=== PATIENT | female | born 1970 | race Caucasian/White ===

== ENCOUNTER 2017-12-17 13:36 | Observation (INO) | payer SELFPAY ==
[2017-12-17] VITALS (10 sets, daily range): BP systolic 112–141; BP diastolic 67–82; PULSE 63–100; RESP 16–20; TEMP 36.7–37.1; O2SAT 96–100; BMI 21.8; BMI 21.6
--- NOTE | 2017-12-17 13:51 | ED.RN ---
Patient reports numbness to left lower lip. denies N/T anywhere else.
--- NOTE | 2017-12-17 14:09 | CT_ITS ---
STUDY: CT BRAIN WITHOUT CONTRAST REASON FOR EXAM: Female, 47 years old. Numbness of the left mandibular region. RADIATION DOSAGE (If Supplied By Facility): CTDIvol = ( 44.99 ) mGy, DLP = ( 796.11 ) mGycm TECHNIQUE: Transaxial CT imaging of the brain was performed without administration of intravenous contrast material. Individualized dose optimization techniques were used for this CT. COMPARISON: Comparison is made with prior examination dated March 25, 2008. FINDINGS: Normal soft tissue structures. Normal calvarium. Normal size ventricles and extra-axial spaces for the patient's age. Stable focal area of encephalomalacia in the lateral aspect of the left frontal lobe suggestive of prior ischemic insult or changes secondary to prior trauma. Normal basal ganglia and thalami. Normal brainstem. Normal cerebellum. There is no intracranial hemorrhage. There are no findings of an acute ischemic infarction. Normal visualized paranasal sinuses. CT/Brain/Head without Contrast IMPRESSION: Stable focal area of encephalomalacia in the lateral aspect of the left frontal lobe. Electronically Signed: Mesfin Burgess MD at 15:00 EDT Tel [phone], Service support ,
--- NOTE | 2017-12-17 14:10 | EKG12_ITS ---
Test Reason : CHEST HEAVINESS Blood Pressure : / mmHG Vent. Rate : 067 BPM Atrial Rate : 067 BPM P-R Int : 116 ms QRS Dur : 082 ms QT Int : 418 ms P-R-T Axes : 030 063 051 degrees QTc Int : 441 ms Normal sinus rhythm Normal ECG Confirmed by NIGEL GEORGE ([id number]), multimedia editor RADHA LICEA ([id number] on 12/20/2017 1:33:23 PM Referred By: RAMON Confirmed By:NIGEL GEORGE
--- NOTE | 2017-12-17 14:11 | RAD_ITS ---
STUDY: X-RAY CHEST REASON FOR EXAM: Female, 47 years old. Left facial numbness. TECHNIQUE: PA and lateral views of the chest. COMPARISON: Comparison is made with prior examination dated January 10, 2016. FINDINGS: EKG electrodes are seen. There is no demonstrated pleural abnormality. Normal size heart. Normal mediastinum and anastasiia. Normal visualized pulmonary arteries. Normal visualized aortic arch and descending thoracic aorta. Normal visualized thoracic spine. Normal visualized ribs, clavicles, and shoulders. There is no demonstrated abnormality of the visualized soft tissue structures of the upper abdomen. RAD/Chest PA and Lateral IMPRESSION: Normal x-ray examination of the chest. Electronically Signed: Mesfin Burgess MD at 15:04 EDT Tel [phone], Service support ,
[2017-12-17 14:58] LABS: Absolute Lymphocyte Count 1.47 X10^3/ul (0.83-4.51); Absolute Neutrophil Count 3.1 X10^3/uL (2.0-7.7); Basophil# 0.11 X10^3/uL; Eosinophil# 0.34 X10^3/uL; Eosinophils% 6.2 % (0-5); Hematocrit 30.4 % (37-47); Hemoglobin 8.9 g/dl (12.0-15.0); Lymphocyte # 1.47 X10^3/ul (4.0); Lymphocyte % 26.7 % (19-41); Mean Corp Hgb Conc 29.3 g/gl (32-36); Mean Corpuscular Hgb 19.2 pg (27.0-32.0); Mean Corpuscular Volume 65.7 fL (81-99); Mean Platelet Vol. 9.1 fl (6.2-12.0); Monocyte# 0.43 X10^3/uL; Monocyte% 7.8 % (0-10); Neutrophil # 3.14 X10^3/uL (2.7-7.7); Neutrophil % 57.1 % (47-70); Platelet Count 316 K/mm3 (150-450); RBC Distribution Width CV 16.1 % (11.6-14.6); Red Blood Count 4.63 M/mm3 (4.2-5.4); White Blood Count 5.5 K/mm3 (4.4-11.0)
[2017-12-17 15:00] LABS: Differential Indicated SCAN CRITERIA MET; POSITIVE COUNT NO; POSITIVE DIFFERENTIAL NO; POSITIVE MORPHOLOGY YES
[2017-12-17 15:02] LABS: Anion Gap 7 (5-15); BUN 8 mg/dL (7-18); BUN/Creat Ratio 10.2 RATIO (10-20); Calcium,Total 8.1 mg/dL (8.5-10.1); Chloride 108 mmol/L (98-107); Creatinine, Serum 0.78 mg/dL (0.55-1.02); EST Glomerular Filtration Rate 84 mL/min (>60); Est Glom Filt Rate - Afr Amer 102 mL/min (>60); Estimated Creatinine Clearance 78.65 ml/min; Glucose 86 mg/dL (74-106); Potassium 3.6 mmol/L (3.5-5.1); Sodium Level 142 mmol/L (136-145)
[2017-12-17 15:25] LABS: Anisocytosis 2+; Differential Comment SCANNED; Hypochromasia 2+; Microcytosis 1+; Ovalocyte 1+
[2017-12-17 15:26] LABS: Schistocytes 1+; Target Cells 1+
[2017-12-17 15:29] LABS: Pregnancy, Serum, hCG Quali. NEGATIVE Negative (0-9 Nonpreg)
--- NOTE | 2017-12-17 16:02 | ED.DCSUM_ITS ---
- ER Visit Summary Date of Service: 12/17/17 Chief Complaint: Facial numbness History of Present Illness: The patient is a 47 F who developed a pulsing sensation in her left chin area this morning followed by numbness to the left zhao. She denies any tongue involvement. She has had no difficulty swallowing or speaking. Patient does reportedly have a history of a CVA 12 years ago. At that time she had a brief episode of expressive aphasia due to a blood clot on my brain. She has been on Coumadin since that time. Patient denies any headache. She has no other strokelike symptoms. Physical Examination: Vital signs are unremarkable. Head and neck examination is normal. Heart is regular rate and rhythm. Lungs are clear. Abdomen is soft nontender. Neuro exam reveals an NIH score of 0. On testing patient has equal sensation to light touch bilaterally over the face. Test Results: Two-view chest x-ray is unremarkable. CT head shows stable focal area of encephalomalacia in the lateral left frontal lobe. EKG is sinus at 67 with no sign of acute ischemia. CBC significant for hemoglobin of 8.9. The only prior value I have available is from 2 years ago at which time her hemoglobin was 14.5. Chemistry studies are normal. Troponin is less than 0.02. test is negative. INR is subtherapeutic at 1.6. Emergency Department Course and Treatment: On repeat evaluation patient still feels as if left side of her chin is numb. I spoke with Dr. Saravia from neurology. Because she is young and has had prior CVA with a subtherapeutic INR , he recommended patient be admitted for further workup and evaluation. Patient has agreed to this. Treatment Plan: [] Disposition: Admit Impression: 1. Facial numbness with history of CVA 2. Subtherapeutic INR This note was generated with [employer] dictation software. It may contain incorrect words, spelling, and punctuation that were not noted in review of the chart prior to signing ED Disposition - Plan for ED Patient: Chief Complaint: Numb/Ting Referrals: Conrado Felder MD [Primary Care Provider] -
[2017-12-17] MEDS: 0.9% Normal Saline 1,000 ML 150 ML IV (16:10)
[2017-12-17 16:26] LABS: International Normalized Ratio 1.6; Prothrombin Time (Protime)PT. 18.9 SECONDS (11.7-14.9)
--- NOTE | 2017-12-17 18:04 | PCM.HP.STD ---
Problem List (1) Depression Status: Chronic (2) History of CVA (cerebrovascular accident) Status: Chronic History of Present Illness Date of Admission: 12/17/17 Chief Complaint: Numbness on the left corner over the face. The patient is a 47 year old F with past medical history as mentioned above presented to the emergency room because of numbness in her face. Her symptoms started today morning around 830 after she woke up from sleep with numbness and abnormal sensation on the left zhao area. She described the sensation as pulsatile sensation initially and then started having numbness to the left side of the zhao, denied any other associated symptoms and no aggravating or relieving factors. She denied blurred vision, slurred speech, mouth deviation or drooling. She denied numbness or tingling of the extremities. She denied focal arm or leg weakness. She denied headache, dizziness or lightheadedness. She denied chest pain or shortness of breath. She did mention that she is having her periods nowadays. She denied epistaxis, hemoptysis, hematemesis, hematochezia, hematuria or melena. She had a history of stroke 12 years ago and she was found to have thrombus on the right side of her brain and she has been on Coumadin since then. She had a history of depression and she has been on citalopram. She had a history of seasonal allergies and she is on Atarax and Claritin. In the emergency room, her vital signs were stable. Her blood work was remarkable for anemia with hemoglobin of 8.9 g/dL. INR was 1.6. Her troponin was negative. EKG revealed normal sinus rhythm, normal intervals and without acute ischemic changes or cardiac arrhythmias. CT scan brain showed left lateral aspect encephalomalacia of the frontal lobe without acute infarction or hemorrhage. She is being admitted for facial numbness/paresthesia for questionable UTI in context of history of stroke has been on Coumadin with subtherapeutic INR. Past Medical History Past Medical History (Chronic Problems): Chronic Problems Depression (Chronic) History of CVA (cerebrovascular accident) (Chronic) Allergies No Known Allergies Allergy (Verified 12/17/17 13:50) Home Medications: Ambulatory Orders Medication Instructions Recorded HydrOXYzine [Atarax] 25 mg PO TID PRN PRN 01/10/16 Warfarin [Coumadin ([facility])] 2 mg PO TH 04/08/16 Warfarin [Coumadin ([facility])] 3 mg PO SUMOTUWEFR 01/10/16 Citalopram Hydrobromide 40 mg PO DAILY 12/17/17 [Citalopram HBr] Loratadine [Claritin] 10 mg PO DAILY 12/17/17 Surgical History: - - section. 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 Dyspnea, Syncope Respiratory: Denies: Cough, Hemoptysis, Pleuritic Pain, Shortness of Breath, Sputum production, Wheezing Gastrointestinal: Denies: Abdominal Pain, Constipation, Diarrhea, Nausea, Vomiting Genitourinary: Denies: Dysuria, Frequency, Hematuria Musculoskeletal: Denies: Arm Pain, Back Pain, Foot Pain Skin: Denies: Dryness, Rash Neurological: Reports: Numbness, Tingling. Denies: Balance problems, Double vision, Change in Speech, Slurred speech, Confusion, Headaches, Incoordination Psychiatric: Reports: Depression. Denies: Anxiety Endocrine: Denies: Change in Body Habitus, Polydipsia VTE Information - Inpt Only VTE Present on Admission: No VTE Mechan Device Prophylaxis: None VTE Pharm Prophylaxis ordered?: No - Physical Exam General: Alert, Oriented x3, Cooperative, No apparent distress HEENT: Atraumatic, PERRLA, EOMI Oral: Moist Mucosa, No Gingival or Mucosal Lesions/ Ulcerations Neck: Supple, No JVD, Negative Carotid Bruits, Trachea Midline, Thyroid Normal Size and Texture Lungs: Clear to auscultation, No rhonchi, No wheeze, No rales Cardiovascular: Regular rate, Regular Rhythm, Normal S1, Normal S2, No murmurs, PMI Normal Abdomen: Bowel Sounds Present, Soft, Non Tender, Non-Distended, No Hepato-splenomegaly Extremities: No clubbing, No cyanosis, No edema Skin: No rashes, No breakdown Musculoskeletal: No Tenderness to Palpation of Joints or Extremities Lymphatic: No Cervical, Supraclavicular, or Inguinal Adenopathy Neurological: Cranial nerves II-XII grossly intact, Motor Exam 5/5 strength throughout, - - Decreased sensation to light touch on the left Zhao area. Psych/Mental Status: Normal Affect, Appropriate, Alert and oriented to time, place, person, mood and affect Vital Signs Temp Pulse Resp BP Pulse Ox 98.7 F 71 18 120/77 100 12/17/17 13:37 12/17/17 17:22 12/17/17 17:22 12/17/17 17:22 12/17/17 17:22 Oxygen Delivery Method Room Air Weight: 127 lb Body Mass Index (BMI) 21.8 Laboratory Tests Past 24 Hrs 12/17/17 12/17/17 12/17/17 14:35 14:35 14:35 WBC 5.5 RBC 4.63 Hgb 8.9 L Hct 30.4 L MCV 65.7 L MCH 19.2 L MCHC 29.3 L RDW 16.1 H RDW Differential 38.0 Plt Count 316 MPV 9.1 Immature Gran % (Auto) 0.200 Neut % (Auto) 57.1 Lymph % (Auto) 26.7 [place] % (Auto) 7.8 Eos % (Auto) 6.2 H Baso % (Auto) 2.0 H Absolute Neuts (auto) 3.1 Absolute Lymphs (auto) 1.47 Total Counted Not Reportable Differential Comment SCANNED Hypochromasia 2+ Anisocytosis 2+ Microcytosis 1+ Target Cells 1+ Ovalocytes 1+ Schistocytes 1+ PT INR Sodium 142 Potassium 3.6 Chloride 108 H Carbon Dioxide 27.0 Anion Gap 7 BUN 8 Creatinine 0.78 Estim Creat Clear Calc 78.65 Est GFR (MDRD) Af Amer 102 Est GFR (MDRD) Non-Af 84 BUN/Creatinine Ratio 10.2 Glucose 86 Calcium 8.1 L Troponin I < 0.02 Serum , Qual NEGATIVE 12/17/17 14:35 WBC RBC Hgb Hct MCV MCH MCHC RDW RDW Differential Plt Count MPV Immature Gran % (Auto) Neut % (Auto) Lymph % (Auto) [place] % (Auto) Eos % (Auto) Baso % (Auto) Absolute Neuts (auto) Absolute Lymphs (auto) Total Counted Differential Comment Hypochromasia Anisocytosis Microcytosis Target Cells Ovalocytes Schistocytes PT 18.9 H INR 1.6 Sodium Potassium Chloride Carbon Dioxide Anion Gap BUN Creatinine Estim Creat Clear Calc Est GFR (MDRD) Af Amer Est GFR (MDRD) Non-Af BUN/Creatinine Ratio Glucose Calcium Troponin I Serum , Qual Clinical Impression(s) from Imaging Studies Brain CT 12/17/17 14:09 IMPRESSION: Stable focal area of encephalomalacia in the lateral aspect of the left frontal lobe. Electronically Signed: Mesfin Burgess MD at 15:00 EDT Tel [phone], Service support , Chest X-Ray 12/17/17 14:11 IMPRESSION: Normal x-ray examination of the chest. Electronically Signed: Mesfin Burgess MD at 15:04 EDT Tel [phone], Service support , Assessment/Plan This is a 47 years old female patient presented to the emergency room because of facial numbness/paresthesia in context of history of left sided stroke 12 years ago has been on Coumadin since then, INR subtherapeutic and she is being admitted for questionable TIA. #1 facial numbness/paresthesia: It is mainly on the left corner of her zhao. No other associated symptoms. Initial CT scan brain showed old infarction, no acute infarction or hemorrhage as mentioned above. Apart from slightly decreased light touch on the left zhao, no focal deficit. Vital signs are stable. EKG revealed normal sinus rhythm without acute ischemic changes or cardiac arrhythmias. Routine blood work as a medical for microcytic anemia. Plan: Admit to PCU for observation, cardiac monitoring, NIH stroke scale, baby aspirin, MRI brain, neurology consult. #2 anemia: Patient did mention that she does have anemia and she has been on iron supplement. She states that she is having her periods at this time. Her hemoglobin on January, was normal at 14.5. Admission hemoglobin is 8.9 g/dL. Plan: Serum iron, ferritin, TIBC. #3 history of stroke: Left side, without residual deficit. Patient has been Coumadin for the last 12 years. Her INR is 1.6, subtherapeutic. Plan to continue Coumadin, repeat INR tomorrow morning. #4 depression: Continue Celexa. #5 DVT prophylaxis: INR is 1.6. This note was generated with [employer] dictation software. It may contain incorrect words, spelling, and punctuation that were not noted in checking the note before signing. Code Visit OBSV E&M: 68065 Initial observation care L2
--- NOTE | 2017-12-17 18:08 | HP.PCM_ITS ---
Problem List (1) Depression Status: Chronic (2) History of CVA (cerebrovascular accident) Status: Chronic History of Present Illness Date of Admission: 12/17/17 Chief Complaint: Numbness on the left corner over the face. The patient is a 47 year old F with past medical history as mentioned above presented to the emergency room because of numbness in her face. Her symptoms started today morning around 830 after she woke up from sleep with numbness and abnormal sensation on the left zhao area. She described the sensation as pulsatile sensation initially and then started having numbness to the left side of the zhao, denied any other associated symptoms and no aggravating or relieving factors. She denied blurred vision, slurred speech, mouth deviation or drooling. She denied numbness or tingling of the extremities. She denied focal arm or leg weakness. She denied headache, dizziness or lightheadedness. She denied chest pain or shortness of breath. She did mention that she is having her periods nowadays. She denied epistaxis, hemoptysis, hematemesis, hematochezia, hematuria or melena. She had a history of stroke 12 years ago and she was found to have thrombus on the right side of her brain and she has been on Coumadin since then. She had a history of depression and she has been on citalopram. She had a history of seasonal allergies and she is on Atarax and Claritin. In the emergency room, her vital signs were stable. Her blood work was remarkable for anemia with hemoglobin of 8.9 g/dL. INR was 1.6. Her troponin was negative. EKG revealed normal sinus rhythm, normal intervals and without acute ischemic changes or cardiac arrhythmias. CT scan brain showed left lateral aspect encephalomalacia of the frontal lobe without acute infarction or hemorrhage. She is being admitted for facial numbness/ paresthesia for questionable UTI in context of history of stroke has been on Coumadin with subtherapeutic INR. Past Medical History Past Medical History (Chronic Problems): Chronic Problems Depression (Chronic) History of CVA (cerebrovascular accident) (Chronic) Allergies No Known Allergies Allergy (Verified 12/17/17 13:50) Home Medications: Ambulatory Orders Medication Instructions Recorded HydrOXYzine [Atarax] 25 mg PO TID PRN PRN 01/10/16 Warfarin [Coumadin ([facility])] 2 mg PO TH 04/08/16 Warfarin [Coumadin ([facility])] 3 mg PO SUMOTUWEFR 01/10/16 Citalopram Hydrobromide 40 mg PO DAILY 12/17/17 [Citalopram HBr] Loratadine [Claritin] 10 mg PO DAILY 12/17/17 Surgical History: - - section. 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 Dyspnea, Syncope Respiratory: Denies: Cough, Hemoptysis, Pleuritic Pain, Shortness of Breath, Sputum production, Wheezing Gastrointestinal: Denies: Abdominal Pain, Constipation, Diarrhea, Nausea, Vomiting Genitourinary: Denies: Dysuria, Frequency, Hematuria Musculoskeletal: Denies: Arm Pain, Back Pain, Foot Pain Skin: Denies: Dryness, Rash Neurological: Reports: Numbness, Tingling. Denies: Balance problems, Double vision, Change in Speech, Slurred speech, Confusion, Headaches, Incoordination Psychiatric: Reports: Depression. Denies: Anxiety Endocrine: Denies: Change in Body Habitus, Polydipsia VTE Information - Inpt Only VTE Present on Admission: No VTE Mechan Device Prophylaxis: None VTE Pharm Prophylaxis ordered?: No - Physical Exam General: Alert, Oriented x3, Cooperative, No apparent distress HEENT: Atraumatic, PERRLA, EOMI Oral: Moist Mucosa, No Gingival or Mucosal Lesions/ Ulcerations Neck: Supple, No JVD, Negative Carotid Bruits, Trachea Midline, Thyroid Normal Size and Texture Lungs: Clear to auscultation, No rhonchi, No wheeze, No rales Cardiovascular: Regular rate, Regular Rhythm, Normal S1, Normal S2, No murmurs, PMI Normal Abdomen: Bowel Sounds Present, Soft, Non Tender, Non-Distended, No Hepato- splenomegaly Extremities: No clubbing, No cyanosis, No edema Skin: No rashes, No breakdown Musculoskeletal: No Tenderness to Palpation of Joints or Extremities Lymphatic: No Cervical, Supraclavicular, or Inguinal Adenopathy Neurological: Cranial nerves II-XII grossly intact, Motor Exam 5/5 strength throughout, - - Decreased sensation to light touch on the left Zhao area. Psych/Mental Status: Normal Affect, Appropriate, Alert and oriented to time, place, person, mood and affect Vital Signs Temp Pulse Resp BP Pulse Ox 98.7 F 71 18 120/77 100 12/17/17 13:37 12/17/17 17:22 12/17/17 17:22 12/17/17 17:22 12/17/17 17:22 Oxygen Delivery Method Room Air Weight: 127 lb Body Mass Index (BMI) 21.8 Laboratory Tests Past 24 Hrs 12/17/17 12/17/17 12/17/17 14:35 14:35 14:35 WBC 5.5 RBC 4.63 Hgb 8.9 L Hct 30.4 L MCV 65.7 L MCH 19.2 L MCHC 29.3 L RDW 16.1 H RDW Differential 38.0 Plt Count 316 MPV 9.1 Immature Gran % (Auto) 0.200 Neut % (Auto) 57.1 Lymph % (Auto) 26.7 [place] % (Auto) 7.8 Eos % (Auto) 6.2 H Baso % (Auto) 2.0 H Absolute Neuts (auto) 3.1 Absolute Lymphs (auto) 1.47 Total Counted Not Reportable Differential Comment SCANNED Hypochromasia 2+ Anisocytosis 2+ Microcytosis 1+ Target Cells 1+ Ovalocytes 1+ Schistocytes 1+ PT INR Sodium 142 Potassium 3.6 Chloride 108 H Carbon Dioxide 27.0 Anion Gap 7 BUN 8 Creatinine 0.78 Estim Creat Clear Calc 78.65 Est GFR (MDRD) Af Amer 102 Est GFR (MDRD) Non-Af 84 BUN/Creatinine Ratio 10.2 Glucose 86 Calcium 8.1 L Troponin I < 0.02 Serum , Qual NEGATIVE 12/17/17 14:35 WBC RBC Hgb Hct MCV MCH MCHC RDW RDW Differential Plt Count MPV Immature Gran % (Auto) Neut % (Auto) Lymph % (Auto) [place] % (Auto) Eos % (Auto) Baso % (Auto) Absolute Neuts (auto) Absolute Lymphs (auto) Total Counted Differential Comment Hypochromasia Anisocytosis Microcytosis Target Cells Ovalocytes Schistocytes PT 18.9 H INR 1.6 Sodium Potassium Chloride Carbon Dioxide Anion Gap BUN Creatinine Estim Creat Clear Calc Est GFR (MDRD) Af Amer Est GFR (MDRD) Non-Af BUN/Creatinine Ratio Glucose Calcium Troponin I Serum , Qual Clinical Impression(s) from Imaging Studies Brain CT 12/17/17 14:09 IMPRESSION: Stable focal area of encephalomalacia in the lateral aspect of the left frontal lobe. Electronically Signed: Mesfin Burgess MD at 15:00 EDT Tel [phone], Service support , Chest X-Ray 12/17/17 14:11 IMPRESSION: Normal x-ray examination of the chest. Electronically Signed: Mesfin Burgess MD at 15:04 EDT Tel [phone], Service support , Assessment/Plan This is a 47 years old female patient presented to the emergency room because of facial numbness/paresthesia in context of history of left sided stroke 12 years ago has been on Coumadin since then, INR subtherapeutic and she is being admitted for questionable TIA. #1 facial numbness/paresthesia: It is mainly on the left corner of her zhao. No other associated symptoms. Initial CT scan brain showed old infarction, no acute infarction or hemorrhage as mentioned above. Apart from slightly decreased light touch on the left zhao, no focal deficit. Vital signs are stable. EKG revealed normal sinus rhythm without acute ischemic changes or cardiac arrhythmias. Routine blood work as a medical for microcytic anemia. Plan: Admit to PCU for observation, cardiac monitoring, NIH stroke scale, baby aspirin, MRI brain, neurology consult. #2 anemia: Patient did mention that she does have anemia and she has been on iron supplement. She states that she is having her periods at this time. Her hemoglobin on January, was normal at 14.5. Admission hemoglobin is 8.9 g/ dL. Plan: Serum iron, ferritin, TIBC. #3 history of stroke: Left side, without residual deficit. Patient has been Coumadin for the last 12 years. Her INR is 1.6, subtherapeutic. Plan to continue Coumadin, repeat INR tomorrow morning. #4 depression: Continue Celexa. #5 DVT prophylaxis: INR is 1.6. This note was generated with [employer] dictation software. It may contain incorrect words, spelling, and punctuation that were not noted in checking the note before signing. Code Visit OBSV E&M: 45941 Initial observation care L2
--- NOTE | 2017-12-17 20:28 | MRI_ITS ---
STUDY: MRI BRAIN WITHOUT CONTRAST REASON FOR EXAM: Female, 47 years old. Feeding tube is seen within the second part of the duodenum. September 09, 2017 lobe of the medial collateral tibia. I will neural, TECHNIQUE: Standardized multiplanar fat and water weighted pulse sequences were obtained. COMPARISON: None. FINDINGS: Normal size of the ventricles and extra-axial spaces for the patient's age. There are a limited number of small white matter hyperintensities, distributed throughout the deep white matter tracts of the cerebral hemispheres, consistent with mild chronic white matter ischemic changes. There is an old ischemic lesion in the left frontal lobe in the left middle cerebral artery territory. Normal bilateral basal ganglia. Normal thalami. There is no extra-axial fluid accumulation. Normal flow voids within the major intracranial circulation suggesting patency by spin echo criteria. Normal sella turcica, pituitary gland, infundibular stalk, optic chiasm and hypothalamus. Normal tectal plate and pineal gland. Normal midbrain, eliecer and medulla. Normal cerebellum. Normal basal cisterns. Normal bilateral temporal bones. Normal bilateral internal auditory canals. No demonstrated orbital abnormality, within the constraints of a routine brain study. There is mucoperiosteal inflammatory disease of the paranasal sinuses consistent with mild chronic sinusitis. Normal calvarium and skull base. Normal visualized soft tissue structures. Normal visualized upper cervical spine. MRI/Brain without Contrast IMPRESSION: There is a small old ischemic lesion in the left frontal lobe in the left middle cerebral artery territory. Electronically Signed: Miranda Odonnell MD at 11:23 EDT Tel , Service support ,
[2017-12-17 21:07] LABS: Ferritin 3 ng/mL (8-252); Iron 6 ug/dL (50-170); Iron Binding Capacity,Total 411 ug/dL (250-450); PERCENT IRON SATURATION 1.5 % (15.0-55.0)
[2017-12-17] MEDS: Loratadine 10 MG Tablet PO (22:43)
[2017-12-17] MEDS: Citalopram 40 MG TABLET PO (22:43)
[2017-12-17] MEDS: hydrOXYzine PAM 25 MG Capsule PO (22:43)
[2017-12-18] VITALS (7 sets, daily range): BP systolic 111–134; BP diastolic 63–75; PULSE 73–91; RESP 16–18; TEMP 36.1–36.7; O2SAT 98–99; BMI 21.6
[2017-12-18 06:25] LABS: International Normalized Ratio 1.9; Prothrombin Time (Protime)PT. 22.2 SECONDS (11.7-14.9)
[2017-12-18 06:36] LABS: Hematocrit 27.8 % (37-47); Mean Corp Hgb Conc 28.8 g/gl (32-36); Mean Corpuscular Hgb 18.9 pg (27.0-32.0); Mean Corpuscular Volume 65.6 fL (81-99); Mean Platelet Vol. 9.7 fl (6.2-12.0); Platelet Count 336 K/mm3 (150-450); RBC Distribution Width CV 16.3 % (11.6-14.6); RBC Distribution Width SD 38.3 fl (35.1-43.9); Red Blood Count 4.24 M/mm3 (4.2-5.4); Scan Indicated on CBC? Y/N YES- FLAGS NOTED; White Blood Count 5.7 K/mm3 (4.4-11.0)
[2017-12-18 06:44] LABS: Cholesterol 138 mg/dL (200); High Density Lipoprotein 36 mg/dL; Triglycerides 74 mg/dL; Very Low Density Lipoprotein 15 mg/dL (5-40)
[2017-12-18] MEDS: Aspirin 81 MG TAB.CHEW PO (09:04)
--- NOTE | 2017-12-18 11:30 | CASEMGMT ---
ROBERTO spoke with patient as she is self pay. She said she is connected with [facility]'s financial assistance program so she sees Dr Felder. She is able to afford her medications. She denies any further needs. Gissell WESTBROOK MSW
--- NOTE | 2017-12-18 13:29 | PCM.CONS.GEN ---
Reason for Consult Date of Consultation: 12/18/17 Reason for Consultation: left facial numbness History of Present Illness: The patient is a 47 year old left handed white female presents with left facial numbness begining yesterday at work around 8am associated with severe recent stress. also had some left chest pain which has resolved. now focal weakness or vision changes, speech and swallowing ok. normal now. recovered from stroke 12 yrs ago now on coumadin. several years ago had considered discontinuing coumadin, reasons for coumadin unclear but had a clot on the left side of my brain. attributed to smoking and OCP at the time. stopped ocp but continues to smoke. reports hypercoag workup in past negative. no personal or family history of clots. 5 pregnancies, one miscarriages. no history of afib. per admit h&p:The patient is a 47 year old F with past medical history as mentioned above presented to the emergency room because of numbness in her face. Her symptoms started today morning around 830 after she woke up from sleep with numbness and abnormal sensation on the left zhao area. She described the sensation as pulsatile sensation initially and then started having numbness to the left side of the hzao, denied any other associated symptoms and no aggravating or relieving factors. She denied blurred vision, slurred speech, mouth deviation or drooling. She denied numbness or tingling of the extremities. She denied focal arm or leg weakness. She denied headache, dizziness or lightheadedness. She denied chest pain or shortness of breath. She did mention that she is having her periods nowadays. She denied epistaxis, hemoptysis, hematemesis, hematochezia, hematuria or melena. She had a history of stroke 12 years ago and she was found to have thrombus on the right side of her brain and she has been on Coumadin since then. She had a history of depression and she has been on citalopram. She had a history of seasonal allergies and she is on Atarax and Claritin. In the emergency room, her vital signs were stable. Her blood work was remarkable for anemia with hemoglobin of 8.9 g/dL. INR was 1.6. Her troponin was negative. EKG revealed normal sinus rhythm, normal intervals and without acute ischemic changes or cardiac arrhythmias. CT scan brain showed left lateral aspect encephalomalacia of the frontal lobe without acute infarction or hemorrhage. She is being admitted for facial numbness/paresthesia for questionable UTI in context of history of stroke has been on Coumadin with subtherapeutic INR.: Past Medical History Past Medical History (Chronic Problems): Chronic Problems Depression (Chronic) History of CVA (cerebrovascular accident) (Chronic) Allergies No Known Allergies Allergy (Verified 12/17/17 13:50) Home Medications: Ambulatory Orders Medication Instructions Recorded HydrOXYzine [Atarax] 25 mg PO TID PRN PRN 01/10/16 Warfarin [Coumadin ([facility])] 2 mg PO TH 01/10/16 Warfarin [Coumadin ([facility])] 3 mg PO SUMOTUWEFRSA 01/10/16 Citalopram Hydrobromide 40 mg PO DAILY 12/17/17 [Citalopram HBr] Loratadine [Claritin] 10 mg PO DAILY 12/17/17 Surgical History: - - section. 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 Smoking Status: Current every day smoker Alcohol: None Drugs: None - *Family History Maternal History Items: No pertinent history Paternal History Items: No pertinent history Review of Systems Constitutional: Denies: Chills, Fever, Weight Change HEENT: Denies: Head Aches, Sinus Congestion, Sinus Drainage Cardiovascular: Denies: Chest Pain, Palpitations Respiratory: Denies: Cough, Shortness of breath at rest, Sputum production Gastrointestinal: Denies: Abdominal Pain, Nausea, Vomiting Genitourinary: Denies: Dysuria Musculoskeletal: Denies: Joint Pain, Joint Tenderness Skin: Denies: Rash, Wounds Neurological: Denies: Numbness, Tingling, Focal weakness Psychiatric: Denies: Anxiety, Depression, Homicidal Ideations, Suicidal Ideations Hematologic/ Lymphatic: Denies: Easy Bruising, Easy Bleeding - Physical Exam General: Alert, Oriented x3, Cooperative HEENT: Atraumatic, PERRLA, EOMI, Normocephalic Neck: Supple, No JVD, Negative Carotid Bruits Lungs: Clear to auscultation, Normal air movement Cardiovascular: Regular rate, No murmurs Abdomen: Bowel Sounds Present, Soft, Non Tender Extremities: No edema, Capillary Refill Less than 3 Seconds Skin: No rashes, No breakdown Musculoskeletal: No Tenderness to Palpation of Joints or Extremities Neurological: Cranial nerves II-XII grossly intact Psych/Mental Status: Normal Affect, Appropriate Vital Signs Temp Pulse Resp BP Pulse Ox 36.7 C 87 16 111/63 98 12/18/17 08:40 12/18/17 11:14 12/18/17 08:40 12/18/17 08:40 12/18/17 08:40 Oxygen Delivery Method Room Air Weight: 57.153 kg Body Mass Index (BMI) 21.6 Intake and Output for Last 24 Hours 12/16/17 12/17/17 12/18/17 23:59 23:59 23:59 Intake Total 1260 / 1260 240 / 240 Balance 1260 / 1260 240 / 240 Laboratory Tests Past 24 Hrs 12/18/17 12/18/17 12/18/17 05:52 05:52 05:52 WBC 5.7 RBC 4.24 Hgb 8.0 L Hct 27.8 L MCV 65.6 L MCH 18.9 L MCHC 28.8 L RDW 16.3 H RDW Differential 38.3 Plt Count 336 MPV 9.7 Differential Comment PT 22.2 H INR 1.9 Triglycerides 74 Cholesterol 138 LDL Cholesterol 87 VLDL Cholesterol 15 HDL Cholesterol 36 L mri reviewed, no acute, small old left mca infarct Current Home Med List Medication Instructions Recorded Confirmed Type HydrOXYzine [Atarax] 25 mg PO TID PRN PRN 01/10/16 12/17/17 History Warfarin [Coumadin ([facility])] 2 mg PO TH 01/10/16 12/17/17 History Warfarin [Coumadin ([facility])] 3 mg PO SUMOTUWEFRSA 01/10/16 12/17/17 History Citalopram Hydrobromide 40 mg PO DAILY 12/17/17 12/17/17 History [Citalopram HBr] Loratadine [Claritin] 10 mg PO DAILY 12/17/17 12/17/17 History Current Medications Generic Name Dose Route Start Last Admin Trade Name Freq PRN Reason Stop Dose Admin Acetaminophen 650 mg 12/17/17 20:28 Tylenol PO Q6H PRN PRN Fever, headache, pain. Aspirin 81 mg 12/18/17 08:00 12/18/17 09:04 Aspirin, Baby PO 81 mg DAILY@0800 [facility] Administration Citalopram Hydrobromide 40 mg 12/18/17 22:00 Celexa PO QHS [facility] Hydroxyzine Pamoate 25 mg 12/17/17 20:28 12/17/17 22:43 Vistaril Pamoate Capsule PO 25 mg TID PRN PRN Administration ANXIETY Loratadine 10 mg 12/18/17 22:00 Claritin PO QHS [facility] Nicotine 14 mg 12/18/17 22:00 Nicoderm Cq ([facility]) TRANSDERM. QHS [facility] Ondansetron HCl 4 mg 12/17/17 20:28 Zofran IV Q8H PRN PRN NAUSEA/VOMITING Sodium Chloride 5 - 30 ml 12/17/17 20:58 IV UD PRN SALINE FLUSH Warfarin Sodium 2 mg 12/23/17 17:00 Coumadin ([facility]) PO Th@1700 [facility] Warfarin Sodium 3 mg 12/18/17 17:00 12/17/17 22:47 Coumadin ([facility]) PO 3 mg SuMoTuWeFrSa@1700 [facility] Administration Assessment/Plan 1: numb chin: resolved, possible anxiety reaction, complicated by anemia. recommend outpatient evaluation for possible causes of anemia. recommend dc tobacco, and dc coumadin if no history of dvt or hypercoagulability which appears there is not. op follow-up.
--- NOTE | 2017-12-18 13:35 | CON.PCM_ITS ---
Reason for Consult Date of Consultation: 12/18/17 Reason for Consultation: left facial numbness History of Present Illness: The patient is a 47 year old left handed white female presents with left facial numbness begining yesterday at work around 8am associated with severe recent stress. also had some left chest pain which has resolved. now focal weakness or vision changes, speech and swallowing ok. normal now. recovered from stroke 12 yrs ago now on coumadin. several years ago had considered discontinuing coumadin , reasons for coumadin unclear but had a clot on the left side of my brain. attributed to smoking and OCP at the time. stopped ocp but continues to smoke. reports hypercoag workup in past negative. no personal or family history of clots. 5 pregnancies, one miscarriages. no history of afib. per admit h&p:The patient is a 47 year old F with past medical history as mentioned above presented to the emergency room because of numbness in her face. Her symptoms started today morning around 830 after she woke up from sleep with numbness and abnormal sensation on the left zhao area. She described the sensation as pulsatile sensation initially and then started having numbness to the left side of the zhao, denied any other associated symptoms and no aggravating or relieving factors. She denied blurred vision, slurred speech, mouth deviation or drooling. She denied numbness or tingling of the extremities. She denied focal arm or leg weakness. She denied headache , dizziness or lightheadedness. She denied chest pain or shortness of breath. She did mention that she is having her periods nowadays. She denied epistaxis, hemoptysis, hematemesis, hematochezia, hematuria or melena. She had a history of stroke 12 years ago and she was found to have thrombus on the right side of her brain and she has been on Coumadin since then. She had a history of depression and she has been on citalopram. She had a history of seasonal allergies and she is on Atarax and Claritin. In the emergency room, her vital signs were stable. Her blood work was remarkable for anemia with hemoglobin of 8.9 g/dL. INR was 1.6. Her troponin was negative. EKG revealed normal sinus rhythm, normal intervals and without acute ischemic changes or cardiac arrhythmias. CT scan brain showed left lateral aspect encephalomalacia of the frontal lobe without acute infarction or hemorrhage. She is being admitted for facial numbness/paresthesia for questionable UTI in context of history of stroke has been on Coumadin with subtherapeutic INR.: Past Medical History Past Medical History (Chronic Problems): Chronic Problems Depression (Chronic) History of CVA (cerebrovascular accident) (Chronic) Allergies No Known Allergies Allergy (Verified 12/17/17 13:50) Home Medications: Ambulatory Orders Medication Instructions Recorded HydrOXYzine [Atarax] 25 mg PO TID PRN PRN 01/10/16 Warfarin [Coumadin ([facility])] 2 mg PO TH 01/10/16 Warfarin [Coumadin ([facility])] 3 mg PO SUMOTUWEFRSA 01/10/16 Citalopram Hydrobromide 40 mg PO DAILY 12/17/17 [Citalopram HBr] Loratadine [Claritin] 10 mg PO DAILY 12/17/17 Surgical History: - - section. 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 Smoking Status: Current every day smoker Alcohol: None Drugs: None - *Family History Maternal History Items: No pertinent history Paternal History Items: No pertinent history Review of Systems Constitutional: Denies: Chills, Fever, Weight Change HEENT: Denies: Head Aches, Sinus Congestion, Sinus Drainage Cardiovascular: Denies: Chest Pain, Palpitations Respiratory: Denies: Cough, Shortness of breath at rest, Sputum production Gastrointestinal: Denies: Abdominal Pain, Nausea, Vomiting Genitourinary: Denies: Dysuria Musculoskeletal: Denies: Joint Pain, Joint Tenderness Skin: Denies: Rash, Wounds Neurological: Denies: Numbness, Tingling, Focal weakness Psychiatric: Denies: Anxiety, Depression, Homicidal Ideations, Suicidal Ideations Hematologic/ Lymphatic: Denies: Easy Bruising, Easy Bleeding - Physical Exam General: Alert, Oriented x3, Cooperative HEENT: Atraumatic, PERRLA, EOMI, Normocephalic Neck: Supple, No JVD, Negative Carotid Bruits Lungs: Clear to auscultation, Normal air movement Cardiovascular: Regular rate, No murmurs Abdomen: Bowel Sounds Present, Soft, Non Tender Extremities: No edema, Capillary Refill Less than 3 Seconds Skin: No rashes, No breakdown Musculoskeletal: No Tenderness to Palpation of Joints or Extremities Neurological: Cranial nerves II-XII grossly intact Psych/Mental Status: Normal Affect, Appropriate Vital Signs Temp Pulse Resp BP Pulse Ox 36.7 C 87 16 111/63 98 12/18/17 08:40 12/18/17 11:14 12/18/17 08:40 12/18/17 08:40 12/18/17 08:40 Oxygen Delivery Method Room Air Weight: 57.153 kg Body Mass Index (BMI) 21.6 Intake and Output for Last 24 Hours 12/16/17 12/17/17 12/18/17 23:59 23:59 23:59 Intake Total 1260 / 1260 240 / 240 Balance 1260 / 1260 240 / 240 Laboratory Tests Past 24 Hrs 12/18/17 12/18/17 12/18/17 05:52 05:52 05:52 WBC 5.7 RBC 4.24 Hgb 8.0 L Hct 27.8 L MCV 65.6 L MCH 18.9 L MCHC 28.8 L RDW 16.3 H RDW Differential 38.3 Plt Count 336 MPV 9.7 Differential Comment PT 22.2 H INR 1.9 Triglycerides 74 Cholesterol 138 LDL Cholesterol 87 VLDL Cholesterol 15 HDL Cholesterol 36 L mri reviewed, no acute, small old left mca infarct Current Home Med List Medication Instructions Recorded Confirmed Type HydrOXYzine [Atarax] 25 mg PO TID PRN PRN 01/10/16 12/17/17 History Warfarin [Coumadin ([facility])] 2 mg PO TH 01/10/16 12/17/17 History Warfarin [Coumadin ([facility])] 3 mg PO SUMOTUWEFRSA 01/10/16 12/17/17 History Citalopram Hydrobromide 40 mg PO DAILY 12/17/17 12/17/17 History [Citalopram HBr] Loratadine [Claritin] 10 mg PO DAILY 12/17/17 12/17/17 History Current Medications Generic Name Dose Route Start Last Admin Trade Name Freq PRN Reason Stop Dose Admin Acetaminophen 650 mg 12/17/17 20:28 Tylenol PO Q6H PRN PRN Fever, headache, pain. Aspirin 81 mg 12/18/17 08:00 12/18/17 09:04 Aspirin, Baby PO 81 mg DAILY@0800 [facility] Administration Citalopram Hydrobromide 40 mg 12/18/17 22:00 Celexa PO QHS [facility] Hydroxyzine Pamoate 25 mg 12/17/17 20:28 12/17/17 22:43 Vistaril Pamoate Capsule PO 25 mg TID PRN PRN Administration ANXIETY Loratadine 10 mg 12/18/17 22:00 Claritin PO QHS [facility] Nicotine 14 mg 12/18/17 22:00 Nicoderm Cq ([facility]) TRANSDERM. QHS [facility] Ondansetron HCl 4 mg 12/17/17 20:28 Zofran IV Q8H PRN PRN NAUSEA/VOMITING Sodium Chloride 5 - 30 ml 12/17/17 20:58 IV UD PRN SALINE FLUSH Warfarin Sodium 2 mg 12/23/17 17:00 Coumadin ([facility]) PO Th@1700 [facility] Warfarin Sodium 3 mg 12/18/17 17:00 12/17/17 22:47 Coumadin ([facility]) PO 3 mg SuMoTuWeFrSa@1700 [facility] Administration Assessment/Plan 1: numb chin: resolved, possible anxiety reaction, complicated by anemia. recommend outpatient evaluation for possible causes of anemia. recommend dc tobacco, and dc coumadin if no history of dvt or hypercoagulability which appears there is not. op follow-up.
--- NOTE | 2017-12-18 13:36 | PCM.DC.SUM ---
<Audrey Dong - Last Filed: 12/18/17 13:59> Discharge Date and Diagnosis Date of Admission: 12/17/17 Date of Discharge: 12/18/17 - Primary Discharge Diagnosis 1. Left chin numbness-suspected secondary to anxiety reaction 2. Iron deficiency anemia - Secondary Discharge Diagnosis Chronic Problems Depression (Chronic) History of CVA (cerebrovascular accident) (Chronic) Tobacco dependence Hospital Course and Treatment Imaging Results: Diagnostic Data Brain CT 12/17/17 14:09 IMPRESSION: Stable focal area of encephalomalacia in the lateral aspect of the left frontal lobe. Electronically Signed: Mesfin Burgess MD at 15:00 EDT Tel [phone], Service support , Chest X-Ray 12/17/17 14:11 IMPRESSION: Normal x-ray examination of the chest. Electronically Signed: Mesfin Burgess MD at 15:04 EDT Tel [phone], Service support , Brain MRI 12/17/17 20:28 IMPRESSION: There is a small old ischemic lesion in the left frontal lobe in the left middle cerebral artery territory. Electronically Signed: Miranda Odonnell MD at 11:23 EDT Tel , Service support , Dr. Link- Neurology Operations: None Procedures: None Summary of Care Provided: The patient is a 47 year old F admitted 12/17/2017 due to numbness on the left corner of her face. She denies slurred speech, facial droop, vision changes or numbness, tingling, weakness of extremities. She has a history of CVA 12 years ago and was found to have thrombus on the right side of her brain. She has been on Coumadin therapy since that time. Her other past medical history includes depression, anxiety and tobacco dependence. Neurology was consulted. EKG sinus rhythm without evidence of ischemia. CT brain showed left lateral aspect encephalomalacia of the frontal lobe without evidence of acute infarct or hemorrhage. INR mildly subtherapeutic at 1.9. Statin was added to her home regimen. She was found to have iron deficiency anemia and was started on ferrous sulfate 325 mg twice daily. Patient will continue Coumadin, statin at discharge. She will follow-up with neurology as outpatient. There was discussion on discontinuing Coumadin however given her reported history of CVA at a young age and unknown circumstances regarding prior CVA, neurology recommended continuing current Coumadin regimen and discussing further options as outpatient. Smoking cessation was strongly encouraged. Recommend B12 and folate as outpatient for further evaluation of anemia as well as left facial paresthesia on admission. Patient seen and examined prior to discharge. Heart rate regular rate and rhythm. Lungs clear. Neuro grossly intact. Abdomen soft, nontender. Vital signs stable. Patient is stable for discharge home with the follow-up recommendations as noted above. This patient was seen by DORA Mullins under the supervision of Dr. Crane. Discharge Diet: Low fat/ Low Cholesterol Discharge Activity: Return to Normal Activity Call your doctor if you observe: Numbness or Tingling, Shortness of breath, Dizziness, Fainting spells, Chest pain, Increased palpitations (irregular heartbeat) Home Medications: Medications to take at Discharge HydrOXYzine [Atarax] 25 mg PO TID PRN PRN 01/10/16 Warfarin [Coumadin] 2 mg PO TH 01/10/16 Warfarin [Coumadin] 3 mg PO SUMOTUWEFRSA 01/10/16 Citalopram Hydrobromide [Citalopram HBr] 40 mg PO DAILY 12/17/17 Loratadine [Claritin] 10 mg PO DAILY 12/17/17 Atorvastatin Calcium [Lipitor] 20 mg PO QHS #30 tab 12/18/17 Ferrous Sulfate 325 mg PO BIDCM #60 tab 12/18/17 Following Prescrptions Were Given to Patient: Atorvastatin Calcium [Lipitor] 20 mg PO QHS #30 tab Ferrous Sulfate 325 mg PO BIDCM #60 tab Primary Care Physician: Conrado Felder MD [Primary Care Provider] - Please follow up with your Primary Care Physician in: 1 Week Please Follow Up With: Ignacio Link MD When: 1-2 Weeks Disposition: Home Minutes spent on discharge:: 35 Patient Condition:: Stable Medical Necessity - Tobacco Use Smoking Status: Current every day smoker Meaningful Use Info Meaningful Use Diagnoses (Choose all that apply): None applicable <Willie Crane - Last Filed: 12/18/17 15:52> Discharge Date and Diagnosis - Secondary Discharge Diagnosis Chronic Problems Depression (Chronic) History of CVA (cerebrovascular accident) (Chronic) Hospital Course and Treatment Summary of Care Provided: This patient was seen in conjunction with POULTRY PICKING MACHINE TENDERAudrey. I have independently interviewed and examined the patient and reviewed pertinent history, examination findings, laboratory and plan of management. I have reviewed the note and agree with the documented findings with the few additional points. In brief, patient is admitted for numbness of left side of coronary face. Patient also has chronic iron of since anemia has not been taking ferrous sulfate. Patient seen by neurologist and negative for the discharge. No acute stroke found in MRI brain. I have discussed my assessment with POULTRY PICKING MACHINE TENDERAudrey and orders have been reviewed. Clinical Impression(s) from Imaging Studies Brain CT 12/17/17 14:09 IMPRESSION: Stable focal area of encephalomalacia in the lateral aspect of the left frontal lobe. Brain MRI 12/17/17 20:28 IMPRESSION: There is a small old ischemic lesion in the left frontal lobe in the left middle cerebral artery territory. Code Visit OBSV E&M: 64304 Observation care discharge
--- NOTE | 2017-12-18 13:54 | DS.PCM_ITS ---
<Audrey Dong - Last Filed: 12/18/17 13:59> Discharge Date and Diagnosis Date of Admission: 12/17/17 Date of Discharge: 12/18/17 - Primary Discharge Diagnosis 1. Left chin numbness-suspected secondary to anxiety reaction 2. Iron deficiency anemia - Secondary Discharge Diagnosis Chronic Problems Depression (Chronic) History of CVA (cerebrovascular accident) (Chronic) Tobacco dependence Hospital Course and Treatment Imaging Results: Diagnostic Data Brain CT 12/17/17 14:09 IMPRESSION: Stable focal area of encephalomalacia in the lateral aspect of the left frontal lobe. Electronically Signed: Mesfin Burgess MD at 15:00 EDT Tel [phone], Service support , Chest X-Ray 12/17/17 14:11 IMPRESSION: Normal x-ray examination of the chest. Electronically Signed: Mesfin Burgess MD at 15:04 EDT Tel [phone], Service support , Brain MRI 12/17/17 20:28 IMPRESSION: There is a small old ischemic lesion in the left frontal lobe in the left middle cerebral artery territory. Electronically Signed: Miranda Odonnell MD at 11:23 EDT Tel , Service support , Dr. Link- Neurology Operations: None Procedures: None Summary of Care Provided: The patient is a 47 year old F admitted 12/17/2017 due to numbness on the left corner of her face. She denies slurred speech, facial droop, vision changes or numbness, tingling, weakness of extremities. She has a history of CVA 12 years ago and was found to have thrombus on the right side of her brain. She has been on Coumadin therapy since that time. Her other past medical history includes depression, anxiety and tobacco dependence. Neurology was consulted. EKG sinus rhythm without evidence of ischemia. CT brain showed left lateral aspect encephalomalacia of the frontal lobe without evidence of acute infarct or hemorrhage. INR mildly subtherapeutic at 1.9. Statin was added to her home regimen. She was found to have iron deficiency anemia and was started on ferrous sulfate 325 mg twice daily. Patient will continue Coumadin, statin at discharge. She will follow-up with neurology as outpatient. There was discussion on discontinuing Coumadin however given her reported history of CVA at a young age and unknown circumstances regarding prior CVA, neurology recommended continuing current Coumadin regimen and discussing further options as outpatient. Smoking cessation was strongly encouraged. Recommend B12 and folate as outpatient for further evaluation of anemia as well as left facial paresthesia on admission. Patient seen and examined prior to discharge. Heart rate regular rate and rhythm. Lungs clear. Neuro grossly intact. Abdomen soft, nontender. Vital signs stable. Patient is stable for discharge home with the follow-up recommendations as noted above. This patient was seen by DORA Mullins under the supervision of Dr. Crane. Discharge Diet: Low fat/ Low Cholesterol Discharge Activity: Return to Normal Activity Call your doctor if you observe: Numbness or Tingling, Shortness of breath, Dizziness, Fainting spells, Chest pain, Increased palpitations (irregular heartbeat) Home Medications: Medications to take at Discharge HydrOXYzine [Atarax] 25 mg PO TID PRN PRN 01/10/16 Warfarin [Coumadin] 2 mg PO TH 01/10/16 Warfarin [Coumadin] 3 mg PO SUMOTUWEFRSA 01/10/16 Citalopram Hydrobromide [Citalopram HBr] 40 mg PO DAILY 12/17/17 Loratadine [Claritin] 10 mg PO DAILY 12/17/17 Atorvastatin Calcium [Lipitor] 20 mg PO QHS #30 tab 12/18/17 Ferrous Sulfate 325 mg PO BIDCM #60 tab 12/18/17 Following Prescrptions Were Given to Patient: Atorvastatin Calcium [Lipitor] 20 mg PO QHS #30 tab Ferrous Sulfate 325 mg PO BIDCM #60 tab Primary Care Physician: Conrado Felder MD [Primary Care Provider] - Please follow up with your Primary Care Physician in: 1 Week Please Follow Up With: Ignacio Link MD When: 1-2 Weeks Disposition: Home Minutes spent on discharge:: 35 Patient Condition:: Stable Medical Necessity - Tobacco Use Smoking Status: Current every day smoker Meaningful Use Info Meaningful Use Diagnoses (Choose all that apply): None applicable <Willie Crane - Last Filed: 12/18/17 15:52> Discharge Date and Diagnosis - Secondary Discharge Diagnosis Chronic Problems Depression (Chronic) History of CVA (cerebrovascular accident) (Chronic) Hospital Course and Treatment Summary of Care Provided: This patient was seen in conjunction with MECHANICAL PRESS OPERATORAudrey. I have independently interviewed and examined the patient and reviewed pertinent history, examination findings, laboratory and plan of management. I have reviewed the note and agree with the documented findings with the few additional points. In brief, patient is admitted for numbness of left side of coronary face. Patient also has chronic iron of since anemia has not been taking ferrous sulfate. Patient seen by neurologist and negative for the discharge. No acute stroke found in MRI brain. I have discussed my assessment with MECHANICAL PRESS OPERATORAudrey and orders have been reviewed. Clinical Impression(s) from Imaging Studies Brain CT 12/17/17 14:09 IMPRESSION: Stable focal area of encephalomalacia in the lateral aspect of the left frontal lobe. Brain MRI 12/17/17 20:28 IMPRESSION: There is a small old ischemic lesion in the left frontal lobe in the left middle cerebral artery territory. Code Visit OBSV E&M: 89050 Observation care discharge
--- NOTE | 2017-12-18 13:55 | PCM.DC ---
- Discharge Diagnoses Current Active Problems: Current Active and Chronic Problems Depression (Chronic) History of CVA (cerebrovascular accident) (Chronic) You will use the following diet at home:: Other - Low-fat/low-cholesterol Discharge Activity: Return to Normal Activity Call your doctor if you observe: Numbness or Tingling, Shortness of breath, Dizziness, Fainting spells, Chest pain, Increased palpitations (irregular heartbeat) Allergies/Adverse Reactions: Allergies No Known Allergies Allergy (Verified 12/17/17 13:50) Medications to take at Discharge HydrOXYzine [Atarax] 25 mg PO TID PRN PRN 01/10/16 Warfarin [Coumadin] 2 mg PO TH 01/10/16 Warfarin [Coumadin] 3 mg PO SUMOTUWEFRSA 01/10/16 Citalopram Hydrobromide [Citalopram HBr] 40 mg PO DAILY 12/17/17 Loratadine [Claritin] 10 mg PO DAILY 12/17/17 Atorvastatin Calcium [Lipitor] 20 mg PO QHS #30 tab 12/18/17 Ferrous Sulfate 325 mg PO BIDCM #60 tab 12/18/17 The following prescriptions were given: Atorvastatin Calcium [Lipitor] 20 mg PO QHS #30 tab Ferrous Sulfate 325 mg PO BIDCM #60 tab Primary Care Physician: Conrado Felder MD [Primary Care Provider] - Please follow up with your Primary Care Physician in: 1 Week Please Follow Up With: Ignacio Link MD When: 1-2 Weeks Proposed Discharge Date: 12/18/17
== END 2017-12-18 13:56 | disposition home or self-care (01) ==
LOC: ED 15:05 → PCU 19:22
PROVIDERS: Admitting Provider Hospitalist; Emergency Provider Emergency Medicine; Family Provider Family Medicine; PCP Family Medicine; Visit Provider Internal Medicine
DX: R20.0 Anesthesia of skin (principal); D50.9 Iron deficiency anemia, unspecified; Z86.73 Personal history of transient ischemic attack (TIA), and cerebral infarction without residual deficits; Z79.899 Other long term (current) drug therapy; Z79.01 Long term (current) use of anticoagulants; F32.9 Major depressive disorder, single episode, unspecified; F41.9 Anxiety disorder, unspecified; F17.200 Nicotine dependence, unspecified, uncomplicated
CPT/HCPCS: 36415; 70450; 70551; 71046; 80048; 80061; 82728; 83540; 83550; 84484; 84703; 85025; 85027; 85610; 93005; 96360; 96361; 99218; 99285; 99406; J7030; A4216; G0378

== ENCOUNTER → 2018-06-21 11:46 | Outpatient (CLI) | payer SELFPAY ==
[2018-06-21 12:34] LABS: Prothrombin Time (Protime)PT. 22.6 SECONDS (11.7-14.9)
== END ==
PROVIDERS: Family Provider Family Medicine; PCP Family Medicine; Visit Provider Family Medicine
DX: I67.9 Cerebrovascular disease, unspecified (principal)
CPT/HCPCS: 85610

== ENCOUNTER 2018-06-23 09:46 | Day surgery (SDC) | payer SELFPAY ==
[2018-06-23] VITALS (9 sets, daily range): BP systolic 101–127; BP diastolic 61–83; PULSE 49–74; RESP 16–18; TEMP 36.4–36.8; O2SAT 96–99; BMI 21.7
[2018-06-23 11:03] LABS: Prothrombin Time (Protime)PT. 22.7 SECONDS (11.7-14.9)
[2018-06-23 12:06] LABS: Internal QC Validated? YES +Cl - CLEAR BKGD; Pregnancy, Urine Negative Negative
--- NOTE | 2018-06-23 13:15 | PCM.OP.BLANK ---
Problem List (1) Menorrhagia Status: Acute Operative Report Date of Procedure: 06/23/18 Preoperative diagnosis: menorrhagia Postoperative diagnosis: menorrhagia Anesthesia: MAC Procedure: hysteroscopy, dilation and curettage, Pia ablation EBL: less than 50 cc Specimens: none sent Complications: none Surgeon: Jade Pena DO Pre Sales Technical Consultant: none Indications: patient is a 47-year-old female who presented to the office with menorrhagia. Workup included a normal pelvic ultrasound, normal TSH, and an endometrial biopsy without hyperplasia or malignancy. The patient had previously tried control pills, but had a stroke while on control pills. The patient had been offered a Mirena IUD, which she declined. Patient elected for a uterine ablation. Risks, benefits, and alternatives were discussed and she was fully consented. Findings: Normal uterine cavity. Atrophic endometrium. Bilateral tubal ostia visualized. Good descent of uterus and cervix. Procedure: Patient was taken to the operating room, placed in lithotomy position using yellow fin stirrups, and MAC anesthesia was found to be adequate. The area was prepped in usual sterile fashion. A weighted speculum was placed and the cervix was exposed. A tenaculum was placed on the anterior lip of the cervix. Good descent of the uterus and cervix was noted. The cervix was dilated to accommodate the hysteroscope. The hysteroscope was advanced to the fundus. The uterine cavity was normal, bilateral tubal ostia were visualized, and the endometrium appeared atrophic. A dilation and curettage was performed. The endometrial curettings were not sent to pathology. The uterus sounded to 9-1/2 cm. The cervical length was 4-1/2 cm. The Pia device was introduced into the uterine cavity. The cavity assessment test was passed. The ablation was performed using the Pia device. The Pia device was removed. The single-tooth tenaculum was removed. Bleeding was noted from the tenaculum sites. Ring forceps were placed on the tenaculum sites for several minutes, and once removed bleeding was still noted. A 3-0 [address] was used to place 2 [id number] sutures at the tenaculum sites. Hemostasis was noted. All instruments were removed. Instrument count was correct. The patient was sent to recovery in stable condition.
--- NOTE | 2018-06-23 13:24 | DCINST_ITS ---
Discharge Diet: No Restrictions Discharge Activity: Return to Normal Activity, May Shower, - - Do not take a bath May resume sexual activity in: 2 weeks Weight Bearing Status: Weight bearing as tolerated Call your doctor if you observe: Fever of 101 or Higher, Using more than one pad per hour, Shortness of breath, Chest pain, Calf discomfort, Uncontrolled pain Allergies/Adverse Reactions: Allergies No Known Allergies Allergy (Verified 06/23/18 10:34) Medications to take at Discharge HydrOXYzine [Atarax] 25 mg PO TID PRN PRN 01/10/16 Warfarin [Coumadin] 2 mg PO MOFR 01/10/16 Warfarin [Coumadin] 3 mg PO SUTUWETHSA 01/10/16 Citalopram Hydrobromide [Citalopram HBr] 40 mg PO DAILY 12/17/17 Loratadine [Claritin] 10 mg PO DAILY 12/17/17 Atorvastatin Calcium [Lipitor] 20 mg PO QHS #30 tab 12/18/17 Ferrous Sulfate 325 mg PO DAILY 06/09/18 Primary Care Physician: Conrado Felder MD [Primary Care Provider] - Test Results: Test results from this visit will be discussed in further detail at your follow- up appointment, if applicable. Please Follow Up With: Jade Pena DO When: 1-2 weeks
[2018-06-23] MEDS: Acetaminophen 325 MG Tablet 650 MG PO (14:18)
== END 2018-06-23 17:35 | disposition home or self-care (01) ==
LOC: SDC 10:11 → AC 10:11
PROVIDERS: Family Provider Family Medicine; PCP Family Medicine; Visit Provider Obstetrics & Gynecology
PROC: 0U5B8ZZ Destruction of Endometrium, Via Natural or Artificial Opening Endoscopic (ICD-10-PCS; CPT 58558; principal; 2018-06-23 12:00)
DX: N92.0 Excessive and frequent menstruation with regular cycle (principal); F41.9 Anxiety disorder, unspecified; D64.9 Anemia, unspecified; E78.5 Hyperlipidemia, unspecified; E78.00 Pure hypercholesterolemia, unspecified; F17.210 Nicotine dependence, cigarettes, uncomplicated; Z79.01 Long term (current) use of anticoagulants; Z79.899 Other long term (current) drug therapy; Z86.73 Personal history of transient ischemic attack (TIA), and cerebral infarction without residual deficits
CPT/HCPCS: 00952; 58563; 81025; 85610; 86850; 86900; J7120; J2405

== ENCOUNTER → 2018-07-13 17:09 | Outpatient (CLI) | payer SELFPAY ==
[2018-07-13 17:25] LABS: International Normalized Ratio 2.2; Prothrombin Time (Protime)PT. 24.1 SECONDS (11.7-14.9)
== END ==
PROVIDERS: Referring Provider Family Medicine; Visit Provider Family Medicine
DX: I67.9 Cerebrovascular disease, unspecified (principal)
CPT/HCPCS: 85610

== ENCOUNTER → 2018-07-16 15:43 | Outpatient (CLI) | payer SELFPAY ==
[2018-06-16 06:21] VITALS: BP 107/70; PULSE 81; RESP 16; TEMP 36.3; O2SAT 98; BMI 21.7
[2018-06-16 06:46] LABS: Partial Thromboplast Time 43.9 Seconds (24.1-36.2); Prothrombin Time (Protime)PT. 36.8 SECONDS (11.7-14.9)
[2018-06-16 06:51] LABS: International Normalized Ratio 3.7
[2018-06-16 07:03] LABS: Pregnancy, Serum, hCG Quali. NEGATIVE Negative (0-9 Nonpreg)
== END ==
LOC: SDC 08-03 15:43 → LAB 08-03 15:44
PROVIDERS: Family Provider Family Medicine; PCP Family Medicine; Visit Provider Obstetrics & Gynecology
PROC: 0UDB8ZZ Extraction of Endometrium, Via Natural or Artificial Opening Endoscopic (ICD-10-PCS; CPT 58558; 2018-06-16 07:20)
DX: Z01.812 Encounter for preprocedural laboratory examination (principal)
CPT/HCPCS: 36415; 84703; 85610; 85730; 86850; 86900; J7120

== ENCOUNTER → 2019-02-06 16:26 | Outpatient (CLI) | payer SELFPAY ==
[2018-06-23 10:40] VITALS: BMI 21.7
[2019-02-06 17:06] LABS: Prothrombin Time (Protime)PT. 22.2 SECONDS (11.7-14.9)
== END ==
PROVIDERS: Family Provider Family Medicine; PCP Family Medicine; Referring Provider Family Medicine; Visit Provider Family Medicine
DX: I67.9 Cerebrovascular disease, unspecified (principal)
CPT/HCPCS: 85610

== ENCOUNTER 2020-04-11 13:14 | Emergency (ER) | payer SELFPAY ==
[2020-04-11 13:15] VITALS: BP 108/83; PULSE 85; RESP 16; TEMP 36.3; O2SAT 99; BMI 20.5
--- NOTE | 2020-04-11 13:25 | EKG12_ITS ---
Test Reason : CP Blood Pressure : / mmHG Vent. Rate : 070 BPM Atrial Rate : 070 BPM P-R Int : 128 ms QRS Dur : 080 ms QT Int : 362 ms P-R-T Axes : 069 070 062 degrees QTc Int : 390 ms Normal sinus rhythm Normal ECG Confirmed by JOSI FRANCO, RENEA ([id number]), image editor DAMION RGANT ([id number]) on 04/15/2020 8:13:43 AM Referred By: MR Confirmed By:RENEA PRATER MD
[2020-04-11 13:39] VITALS: O2SAT 99
--- NOTE | 2020-04-11 13:45 | ED.VIS.GEN ---
History of Present Illness Chief Complaint: General Illness Narrative: Patient presenting for evaluation secondary to generalized illness. Patient states that over the course of the last 6 to 8 months she has been intermittently dealing with a chest lump. Patient states that this is more of a chest discomfort that will come and go, and she reports that it typically is associated with increases in her anxiety. Patient reports that today she was feeling generally fatigued, and was dealing with this chest lump. Patient states that she went to urgent care, and they recommended that she come to the emergency department. Patient states that she does feel somewhat short of breath secondary to this because she has some difficulty with taking a deep breath. She has a past history of stroke, is on Coumadin. Patient denies any exertional component to this chest pain. Far as her fatigue goes she denies any fever cough nausea vomiting or diarrhea associated with this. No skin rashes. No sick contacts. Review of systems otherwise negative. Past Medical History - Allergies and Home Meds Allergies/Adverse Reactions: Allergies No Known Allergies Allergy (Verified 04/11/20 13:17) Primary Care Physician: Conrado Felder MD [Primary Care Provider] - Prior records reviewed: Yes Past Medical History: - - Last history of stroke Surgical History: - - section. Smoking Status: Former smoker Alcohol: None Drugs: None - Family History Maternal Family History: Reports: No pertinent history Paternal Family History: Reports: No pertinent history Review of Systems All systems negative except as indicated General: Denies: Chills, Fever, Sweats Eyes: Denies: Visual changes - bilaterally, Diplopia ENT: Denies: Rhinorrhea, Sore throat Cardiovascular: Reports: Chest pain. Denies: Palpitations Respiratory: Denies: Dyspnea, Cough, Dyspnea on exertion Gastrointestinal: Denies: Abdominal pain, Nausea, Vomiting, Diarrhea, Melena, Hematochezia Genitourinary: Denies: Dysuria, Hematuria, Frequency Musculoskeletal: Denies: Back pain, Extremity Pain Skin: Denies: Rash, Wounds Neurological: Denies: Headache, Weakness, Numbness Physical Exam Vital Signs/Narrative: Vital Signs Temp Pulse Resp BP Pulse Ox 04/11/20 13:39 99 04/11/20 13:15 97.4 F L 85 16 108/83 H 99 Inital Vital Signs reviewed: Yes General: Well nourished, Well developed, No Acute Distress Head: Normocephalic, Atraumatic Eyes: Perrl, EOMI ENT: Moist mucous membranes, No rhinorrhea Neck: Supple, Nontender Cardiovascular: Regular rate, Regular rhythm, No murmurs Respiratory: No distress, CTA bilaterally, Chest tenderness - Anterior chest tenderness over the inferior portion of the patient's sternum without evidence of deformity. Abdomen: Soft, Nontender, Nondistended, Normal bowel sounds Back: Nontender, Normal Inspection Extremities: Nontender, No edema Skin: Normal color, No rash Neurological: Alert, Oriented x3, Cranial nerves II-XII grossly intact, Normal Strength, Normal Sensation Psychological: Normal affect, Normal Mood Diagnostic/Tx/Re-eval Clinical Impression(s) from Imaging Studies Chest X-Ray 04/11/20 13:49 IMPRESSION: Normal x-ray examination of the chest. Electronically Signed: Mesfin Aditya, at 14:21 EDT , Service support , Laboratory Data 04/11/20 04/11/20 04/11/20 13:43 13:43 13:43 WBC 7.5 RBC 5.44 H Hgb 15.0 Hct 46.1 MCV 84.7 MCH 27.6 MCHC 32.5 RDW Std Deviation 41.0 RDW Coeff of William 13.3 Plt Count 241 MPV 10.1 Immature Gran % (Auto) 0.500 Neut % (Auto) 76.4 H Lymph % (Auto) 13.7 L [place] % (Auto) 6.5 Eos % (Auto) 2.0 Baso % (Auto) 0.9 Absolute Neuts (auto) 5.8 Absolute Lymphs (auto) 1.03 Nucleated RBC % 0 PT 36.8 H INR 3.7 H* APTT 42.2 H Sodium 139 Potassium 3.7 Chloride 106 Carbon Dioxide 27.0 Anion Gap 6 BUN 6 L Creatinine 0.85 Estim Creat Clear Calc 70.31 Est GFR (MDRD) Af Amer 92 Est GFR (MDRD) Non-Af 76 BUN/Creatinine Ratio 7.1 L Glucose 97 Calcium 8.4 L Troponin I < 0.015 - EKG Initial EKG Interpretation: - - Normal sinus rhythm at [address] segments normal T waves normal MO and QTc intervals no evidence of acute ischemia or arrhythmia - Medical Decision Making Patient presented secondary to generalized weakness and some chest pain. EKG was found to be unremarkable. PA and lateral chest x-ray by my personal review as well as radiology is negative for acute pathology. CBC chemistry and troponin unremarkable. INR found to be elevated at 3.7. Patient was informed of this and was recommended to hold her Coumadin for the next 24 hours. Patient at this point has chest pain that is been persistent all day with a negative cardiac enzyme. Patient's heart score is a maximum of 2. She does not require admission or further observation. Patient was given reassurance, and was discharged in stable condition. Patient's symptoms are likely are a manifestation of anxiety. ED Disposition - Plan for ED Patient: Disposition: Home or Assisted Living Diagnosis: Chest pain, Supratherapeutic INR Instructions: ED Chest Pain NonCardiac Referrals: Conrado Felder MD [Primary Care Provider] - 2 Days Additional Instructions: Hold your Coumadin for 24 hours and recheck your INR
--- NOTE | 2020-04-11 13:49 | RAD_ITS ---
STUDY: X-RAY CHEST REASON FOR EXAM: Female, 49 years old. CHEST PAIN TECHNIQUE: PA and lateral views of the chest. COMPARISON: Comparison is made with prior study dated December 18, 2015. FINDINGS: EKG electrodes are seen. The lungs are clear and expanded. There is no demonstrated pleural abnormality. Normal size heart. Normal mediastinum and anastasiia. Normal visualized pulmonary arteries. Normal visualized aortic arch and descending thoracic aorta. Normal visualized thoracic spine. Normal visualized ribs, clavicles, and shoulders. There is no demonstrated abnormality of the visualized soft tissue structures of the upper abdomen. RAD/Chest PA and Lateral IMPRESSION: Normal x-ray examination of the chest. Electronically Signed: Mesfin Burgess, at 14:21 EDT , Service support ,
[2020-04-11 13:52] LABS: Absolute Lymphocyte Count 1.03 X10^3/uL (0.83-4.51); Absolute Neutrophil Count 5.8 X10^3/uL (2.0-7.7); Basophil# 0.07 X10^3/uL; Basophil% 0.9 % (0-1); Eosinophil# 0.15 X10^3/uL; Hematocrit 46.1 % (37-47); Lymphocyte # 1.03 X10^3/ul (4.0); Lymphocyte % 13.7 % (19-41); Mean Corp Hgb Conc 32.5 g/dL (32-36); Mean Corpuscular Hgb 27.6 pg (27.0-32.0); Mean Corpuscular Volume 84.7 fL (81-99); Mean Platelet Vol. 10.1 fl (6.2-12.0); Monocyte# 0.49 X10^3/uL; Monocyte% 6.5 % (0-10); NRBC Flagged by Analyzer 0 % (0-5); Neutrophil # 5.75 X10^3/uL (2.7-7.7); Neutrophil % 76.4 % (47-70); Platelet Count 241 K/mm3 (150-450); RBC Distribution Width CV 13.3 % (11.6-14.6); Red Blood Count 5.44 M/mm3 (4.2-5.4); White Blood Count 7.5 K/mm3 (4.4-11.0)
[2020-04-11 14:00] LABS: Prothrombin Time (Protime)PT. 36.8 SECONDS (11.7-14.9)
[2020-04-11 14:01] LABS: Partial Thromboplast Time 42.2 Seconds (24.1-36.2)
[2020-04-11 14:08] LABS: International Normalized Ratio 3.7
[2020-04-11 14:14] LABS: Anion Gap 6 (5-15); BUN 6 mg/dL (7-18); BUN/Creat Ratio 7.1 RATIO (10-20); Calcium,Total 8.4 mg/dL (8.5-10.1); Chloride 106 mmol/L (98-107); Creatinine, Serum 0.85 mg/dL (0.55-1.02); EST Glomerular Filtration Rate 76 mL/min (>60); Est Glom Filt Rate - Afr Amer 92 mL/min (>60); Estimated Creatinine Clearance 70.31 ml/min; Glucose 97 mg/dL (74-106); Potassium 3.7 mmol/L (3.5-5.1); Sodium Level 139 mmol/L (136-145)
[2020-04-11 15:14] VITALS: PULSE 62
[2020-04-11 15:19] VITALS: PULSE 60; RESP 16; O2SAT 100
== END 2020-04-11 15:21 | disposition home or self-care (01) ==
PROVIDERS: Emergency Provider Emergency Medicine; PCP Family Medicine
DX: R07.89 Other chest pain (principal); R79.1 Abnormal coagulation profile; Z86.73 Personal history of transient ischemic attack (TIA), and cerebral infarction without residual deficits; Z79.01 Long term (current) use of anticoagulants; Z87.891 Personal history of nicotine dependence
CPT/HCPCS: 71046; 80048; 84484; 85025; 85610; 85730; 93005; 99284; A4216

== ENCOUNTER → 2020-04-17 | Outpatient (CLI) | payer SELFPAY ==
[2020-04-11 13:15] VITALS: BMI 20.5
[2020-04-17 16:03] LABS: Prothrombin Time (Protime)PT. 34.6 SECONDS (11.7-14.9)
[2020-04-17 16:41] LABS: International Normalized Ratio 3.5
== END | disposition home or self-care (01) ==
LOC: LABSPEC 15:43
PROVIDERS: PCP Family Medicine; Referring Provider Family Medicine; Visit Provider Family Medicine
DX: I67.9 Cerebrovascular disease, unspecified (principal)
CPT/HCPCS: 85610

== ENCOUNTER 2022-04-07 09:24 | Emergency (ER) | payer SELFPAY ==
[2022-04-07 09:24] VITALS: BP 109/91; PULSE 99; RESP 16; TEMP 36.7; O2SAT 100; BMI 21.7
--- NOTE | 2022-04-07 09:33 | EKG12_ITS ---
Test Reason : SYNCOPE/CP Blood Pressure : / mmHG Vent. Rate : 084 BPM Atrial Rate : 084 BPM P-R Int : 126 ms QRS Dur : 084 ms QT Int : 360 ms P-R-T Axes : 083 084 044 degrees QTc Int : 425 ms Normal sinus rhythm Normal ECG Confirmed by AIMEE FRANCO, TARAN ([id number]), continuity editor DAMION GRANT ([id number]) on 04/09/2022 8:54:15 AM Referred By: Confirmed By:TARAN YU MD
--- NOTE | 2022-04-07 09:33 | EDS_ITS ---
HPI History of Present Illness Chief Complaint: Syncope Informant: patient Narrative Narrative: 51-year-old female presenting to the emergency department following a near syncopal episode. Patient states that she was in her shower and laid her head back to put shampooing her hair and immediately felt that she was going to pass out. Patient states she is feeling better but still a little weak. This is happened twice before and she states each time is when her head was laid back. Patient notes that she is on Coumadin due to a prior stroke she had in her 30s. [facility] Medical History (Updated 04/07/22 @ 10:[address] Portillo Gongora DO) Depression History of CVA (cerebrovascular accident) Home Medications Hydroxyzine [Atarax] 25 mg PO TID PRN PRN Anxiety 01/10/16 [History Last Taken 12/16/17 21:00] atorvastatin 20 mg tablet 20 mg PO QHS #30 tabs 12/18/17 [Rx Last Taken Unknown] warfarin 3 mg tablet 3 mg PO DAILY 04/07/22 [History Last Taken Unknown] Allergy/AdvReac Type Severity Reaction Status Date / Time No Known Allergies Allergy Verified 04/07/22 09:24 Social History (Updated 04/07/22 @ 09:[address] Portillo Gongora DO) current gender identity: female Smoking Status: Current every day smoker tobacco type: cigarettes substance use type: does not use ROS ROS ED Constitutional Constitutional ED: Denies chills or weight loss Eyes Eyes: Denies change in vision or diplopia ENT ENT ED: Denies ear pain, rhinorrhea or sore throat Cardiovascular Cardiovascular: Reports other Details: Near syncope ; Denies chest pain, orthopnea, palpitations or racing heartbeat Respiratory/Chest Respiratory/Chest: Denies cough, dyspnea or orthopnea Gastrointestinal Gastrointestinal: Denies abdominal pain, diarrhea, nausea or vomiting Genitourinary Genitourinary ED: Denies dysuria, hematuria or urinary frequency Musculoskeletal Musculoskeletal: Denies arthralgias or myalgias Integumentary Denies abscess or rash Neurologic Neurologic: Denies headache(s) or weakness Psychiatric Psychiatric: Denies anxiety, depression, suicidal ideation or suicidal thoughts Endocrine Endocrinology: Denies polydipsia, polyphagia or polyuria Allergic/Immunologic Allergic/Immunologic ED: Denies mouth swelling, tongue swelling or urticaria EXAM Physical Exam Const Vital Signs: 04/07/22 09:24 04/07/22 09:41 Temperature 98.0 F Temperature Source Temporal Pulse Rate 99 Respiratory Rate 16 Respiratory Effort Normal Non-Labored Respiratory Pattern Normal Blood Pressure 109/91 H Blood Pressure Mean 97 Pulse Ox 100 Oxygen Delivery Method Room Air Positive well nourished and well developed General Appearance ED: well developed HEENT Reports normocephalic, head/scalp atraumatic and moist mucous membranes Eyes PERRL and EOMs intact bilaterally Neck no lymphadenopathy, supple and no JVD Resp normal respiratory effort and clear to auscultation bilaterally Cardio regular rate, regular rhythm and no murmurs GI normal to inspection, nondistended, normoactive bowel sounds and non-tender Palpation: soft Back/Spine no CVA tenderness and normal ROM Extremity normal to inspection General Extremety ED: Negative for edema General Extremity: Negative for edema Neuro oriented x3 and CN's II-XII intact bilaterally Sensorium / Orientation: alert Motor Exam: strength 5/5 throughout Psych mental status grossly normal Mood & Affect: Negative for depressed or tearful Skin no rashes or lesions noted and no wounds MDM MDM MDM Narrative Medical decision making narrative: Basic blood work showed a hemoglobin 15.9 white count of 8.1. INR is therapeutic at 2.5. Troponin is less than 3. Electrolytes are within normal limits. My interpretation of the chest x-ray is normal mediastinal silhouette. Patient has remained in a normal sinus rhythm on the monitor. At this point patient to be discharged home following up with primary care Lab Data Attestation: I reviewed the patient's lab results. Labs: Laboratory Results - last 24 hr 04/07/22 04/07/22 04/07/22 09:41 09:41 09:41 WBC 8.1 RBC 5.73 H Hgb 15.9 H Hct 48.4 H MCV 84.5 MCH 27.7 MCHC 32.9 RDW Std Deviation 42.6 RDW Coeff of [place] 13.8 Plt Count 250 MPV 10.3 Immature Gran % (Auto) 0.500 Neut % (Auto) 78.1 H Lymph % (Auto) 12.4 L [place] % (Auto) 6.1 Eos % (Auto) 2.2 Baso % (Auto) 0.7 Absolute Neuts (auto) 6.3 Absolute Lymphs (auto) 1.00 Nucleated RBC % 0 PT 26.3 H INR 2.5 Sodium 139 Potassium 3.9 Chloride 105 Carbon Dioxide 28.0 Anion Gap 6 BUN 8 Creatinine 1.07 H Estim Creat Clear Calc 54.92 Est GFR (MDRD) Af Amer 70 Est GFR (MDRD) Non-Af 58 L BUN/Creatinine Ratio 7.5 L Glucose 94 Calcium 9.2 Magnesium 1.9 Troponin I High Sens < 3 L Radiography Diagnostic Testing: Clinical Impression(s) from Imaging Studies Chest X-Ray 04/07/22 09:33 IMPRESSION: Normal x-ray examination of the chest. Electronically Signed: Dave Anderson MD at 10:13 EDT , EKG Initial EKG: Attestation: I personally reviewed and interpreted this EKG as follows: Comments: Normal sinus rhythm with a ventricular rate of 84 bpm Discharge Plan Triage Chief Complaint: Syncope ED Provider: Portillo Gongora Dx/Rx/DC Orders Clinical Impression: Near syncope Instructions: ED Near-Fainting, Uncertain Cause Prescriptions: No Action Hydroxyzine [Atarax] 25 MG tablet 25 mg PO TID PRN PRN (Reason: Anxiety) atorvastatin 20 MG tablet 20 mg PO QHS Qty: 30 0RF warfarin 3 mg tablet 3 mg PO DAILY Label Comments: Take 1.5mg on wednesday, wednesday and then 3 mg on all other days or as directed Primary Care Provider: Conrado Felder Referrals: Conrado Felder MD [Primary Care Provider] - 1 Week Disposition Disposition: Home, Self Care
--- NOTE | 2022-04-07 09:33 | RAD_ITS ---
STUDY: X-RAY CHEST REASON FOR EXAM: Female, 51 years old. near syncope TECHNIQUE: Single AP portable view of the chest. COMPARISON: 04/11/2020 FINDINGS: The lungs are clear and expanded. There is no demonstrated pleural abnormality. Normal size heart. Normal mediastinum and anastasiia. Normal visualized pulmonary arteries. Normal visualized aortic arch and descending thoracic aorta. Normal visualized thoracic spine. Normal visualized ribs, clavicles, and shoulders. There is no demonstrated abnormality of the visualized soft tissue structures of the upper abdomen. RAD/Chest 1 View (Portable) IMPRESSION: Normal x-ray examination of the chest. Electronically Signed: Dave Anderson MD at 10:13 EDT ,
[2022-04-07 09:57] LABS: Absolute Neutrophil Count 6.3 X10^3/uL (2.0-7.7); Basophil# 0.06 X10^3/uL; Basophil% 0.7 % (0-1); Eosinophil# 0.18 X10^3/uL; Eosinophils% 2.2 % (0-5); Hematocrit 48.4 % (37-47); Hemoglobin 15.9 g/dL (12.0-15.0); Lymphocyte % 12.4 % (19-41); Mean Corp Hgb Conc 32.9 g/dL (32-36); Mean Corpuscular Hgb 27.7 pg (27.0-32.0); Mean Corpuscular Volume 84.5 fL (81-99); Mean Platelet Vol. 10.3 fl (6.2-12.0); Monocyte# 0.49 X10^3/uL; Monocyte% 6.1 % (0-10); NRBC Flagged by Analyzer 0 % (0-5); Neutrophil # 6.31 X10^3/uL (2.7-7.7); Neutrophil % 78.1 % (47-70); Platelet Count 250 K/mm3 (150-450); RBC Distribution Width CV 13.8 % (11.6-14.6); RBC Distribution Width SD 42.6 fl (35.1-43.9); Red Blood Count 5.73 M/mm3 (4.2-5.4); White Blood Count 8.1 K/mm3 (4.4-11.0)
[2022-04-07 10:03] LABS: International Normalized Ratio 2.5; Prothrombin Time (Protime)PT. 26.3 SECONDS (11.7-14.9)
[2022-04-07 10:11] LABS: Anion Gap 6 (5-15); BUN 8 mg/dL (7-18); BUN/Creat Ratio 7.5 RATIO (10-20); Calcium,Total 9.2 mg/dL (8.5-10.1); Chloride 105 mmol/L (98-107); Creatinine, Serum 1.07 mg/dL (0.55-1.02); EST Glomerular Filtration Rate 58 mL/min (>60); Est Glom Filt Rate - Afr Amer 70 mL/min (>60); Estimated Creatinine Clearance 54.92 ml/min; Glucose 94 mg/dL (74-106); Magnesium 1.9 mg/dL (1.6-2.6); Potassium 3.9 mmol/L (3.5-5.1); Sodium Level 139 mmol/L (136-145); Troponin-I HS < 3 pg/mL (3.0-54.0)
[2022-04-07 10:22] VITALS: BP 111/82; PULSE 82; RESP 21; O2SAT 98
== END 2022-04-07 10:45 | disposition home or self-care (01) ==
PROVIDERS: Emergency Provider Emergency Medicine; PCP Family Medicine; Visit Provider Emergency Medicine
DX: R55 Syncope and collapse (principal); F32.A Depression, unspecified; F17.210 Nicotine dependence, cigarettes, uncomplicated; Z79.01 Long term (current) use of anticoagulants; Z79.899 Other long term (current) drug therapy; Z86.73 Personal history of transient ischemic attack (TIA), and cerebral infarction without residual deficits
CPT/HCPCS: 71045; 80048; 83735; 84484; 85025; 85610; 93005; 99284; A4216